=== PATIENT | female | born 1970 | race Caucasian/White ===

== ENCOUNTER 2022-10-01 13:05 | Emergency (ER) | payer BC, MEDICAID, OTHER ==
[2022-10-01 13:50] VITALS: BP 83/58; PULSE 70
[2022-10-01] MEDS ORDERED: Sodium Chloride 0.9% 1,000 ML IV ONE (14:11)
[2022-10-01] MEDS ORDERED: Sodium Chloride 0.9% 10 ML Syringe FLUSH PRN (14:11)
[2022-10-01] MEDS ORDERED: Ketorolac 30 MG/ML SDV IVPUSH ONE (14:11)
[2022-10-01] MEDS ORDERED: HYDROmorphone 0.5 MG/0.5 ML Syringe IVPUSH ONE (15:39)
== END 2022-10-01 17:10 | disposition home or self-care (01) ==
LOC: JD.ED 13:05
DX: S82.831A Other fracture of upper and lower end of right fibula, initial encounter for closed fracture (principal); I10 Essential (primary) hypertension; K21.9 Gastro-esophageal reflux disease without esophagitis; Z72.0 Tobacco use
CPT/HCPCS: 29515; 73610; 73630; 96361; 96374; 96375; 99283; J1170; J1885; J3490; J7030

== ENCOUNTER 2022-10-09 07:13 | Day surgery (SDC) | payer BC ==
[~2022-10-09 07:13] MED LIST: Ketorolac 30 MG/ML SDV ONE; Lactated Ringers 1,000 ML IV SCH; Lidocaine 1% 2 ML ONE; Lidocaine 1%/Sod Bicarbonate in NS 8.4% 1 ML Syringe IDERM PRN; Ondansetron 4 MG/2 ML SDV ONE; Propofol 200 MG/20 ML SDV ONE; Sodium Chloride 0.9% 10 ML Syringe FLUSH PRN; Sodium Chloride 0.9% 10 ML Syringe FLUSH SCH; fentaNYL 100 MCG/2 ML SDV ONE
[2022-10-09] MEDS ORDERED: Bupivacaine 0.25% 10 ML SDV ONE (07:19)
[2022-10-09] MEDS ORDERED: Ondansetron 4 MG/2 ML SDV IVPUSH PRN (07:47)
[2022-10-09 08:35] LABS: ESTIMATED GFR 89 mL/min (>60)
[2022-10-09] MEDS ORDERED: ceFAZolin 2 GM Vial ONE (10:00)
[2022-10-09] MEDS ORDERED: HYDROmorphone 0.5 MG/0.5 ML Syringe ONE (10:40)
[2022-10-09] MEDS ORDERED: Midazolam 1 MG/ML 2 ML SDV ONE (11:05)
[2022-10-09] MEDS: fentaNYL 100 MCG/2 ML SDV IVPUSH PRN ×2 (11:10→11:58)
[2022-10-09] MEDS: HYDROmorphone 0.5 MG/0.5 ML Syringe IVPUSH PRN ×2 (11:12→11:36)
[2022-10-09] MEDS ORDERED: Acetaminophen/HYDROcodone 325-5 MG Tab PO ONE (13:05)
[2022-10-09 14:08] VITALS: BP 118/76; PULSE 74
== END 2022-10-09 13:55 | disposition home or self-care (01) ==
LOC: JD.SDS 07:13
PROVIDERS: ATTEND Orthopaedic Surgery
DX: S82.841A Displaced bimalleolar fracture of right lower leg, initial encounter for closed fracture (principal); S93.431A Sprain of tibiofibular ligament of right ankle, initial encounter; F41.9 Anxiety disorder, unspecified; I10 Essential (primary) hypertension; I25.10 Atherosclerotic heart disease of native coronary artery without angina pectoris; F32.A Depression, unspecified; F17.200 Nicotine dependence, unspecified, uncomplicated; Z79.899 Other long term (current) drug therapy; W10.9XXA Fall (on) (from) unspecified stairs and steps, initial encounter; Y93.01 Activity, walking, marching and hiking
CPT/HCPCS: 27792; 27829; 36415; 76000; 80048; 85025; 85610; 85730; A9270; C1713; C1776; J0690; J1170; J1885; J2250; J2405; J2704; J3010; J3490; J7120; 01480